=== PATIENT | male | born 1950 | race Caucasian/White ===

== ENCOUNTER 2018-06-15 06:02 | Inpatient (IN) | payer MEDICARE, OTHER ==
[2018-06-07 10:39] LABS: BASOPHILS % (AUTO) 0.2 % (0-1); EOSINOPHILS # (AUTO) 0.1 X10'3 (0-0.9); EOSINOPHILS % (AUTO) 1.4 % (0-6); LYMPHOCYTES # (AUTO) 1.8 X10'3 (1.1-4.8); LYMPHOCYTES % (AUTO) 23.7 % (21-51); MEAN CORPUSCULAR HEMOGLOBIN 31.1 PG (27.0-31.0); MEAN CORPUSCULAR VOLUME 91.6 FL (78-98); MEAN PLATELET VOLUME 8.7 FL (7.4-10.4); MONOCYTES # (AUTO) 0.6 X10'3 (0-0.9); MONOCYTES % (AUTO) 7.8 % (2-12); NEUTROPHILS # (AUTO) 5.1 X10'3 (1.8-7.7); NEUTROPHILS % (AUTO) 66.9 % (42-75); PRE OP HEMATOCRIT 46.4 % (42.0-52.0); PRE OP HEMOGLOBIN 15.8 g/dL (14.0-17.9); PRE OP PLATELET COUNT 216 X10'3 (140-440); RED BLOOD COUNT 5.06 X10'6 (4.70-6.10); RED CELL DISTRIBUTION WIDTH 13.1 % (11.5-14.5)
[2018-06-07 10:56] LABS: ALBUMIN 3.7 G/DL (3.4-5.0); ALBUMIN/GLOBULIN RATIO 1.1 (1.1-1.5); ALKALINE PHOSPHATASE 76 IU/L (46-116); BLOOD UREA NITROGEN 19 MG/DL (7-18); BUN/CREATININE RATIO 19.8 (5.4-32.0); CALCIUM 8.9 MG/DL (8.5-10.1); CHLORIDE 103 MMOL/L (99-107); CREATININE 0.96 MG/DL (0.60-1.10); PRE OP ALT 27 U/L (30-65); PRE OP ANION GAP 8 (8-16); PRE OP AST 22 U/L (10-37); PRE OP BILIRUB, TOTAL 0.7 MG/DL (0.0-1.0); PRE OP GLUCOSE 107 MG/DL (70-104); PRE OP POTASSIUM 4.2 MMOL/L (3.4-5.1); PRE OP SODIUM 137 MMOL/L (135-145); TOTAL PROTEIN 7.2 G/DL (6.4-8.2); eGFR 78 ML/MIN
[2018-06-15] VITALS (7 sets, daily range): BP systolic 113–146; BP diastolic 68–90
[~2018-06-15] VITALS: Ht 182.9 cm; Wt 81.0 kg
[~2018-06-15 06:02] MED LIST: ALBU8.5H8 IH; IRBE150T51 PO; cefazolin/dext.iso 2gm/50ml 50 ML IV ONE; famotidine 20mg tablet PO ONE; ringers solution, lacted 1,000 ML IV SCH; vancomycin inj 1,500 MG in normal saline 300ml IV soln IV ONE
[2018-06-15] MEDS ORDERED: ROPIVAcaine 0.5% (5mg/ml) 30ml vial ONE ×2 (06:55→08:07)
[2018-06-15] MEDS ORDERED: ketorolac trometh. 30mg/ml inj. ONE (06:55)
[2018-06-15] MEDS ORDERED: sevoflurane 250ml liquid IH ONE (08:02)
[2018-06-15] MEDS ORDERED: cloNIDine hcl/PF 100mcg/ml inj ONE ×2 (08:07→08:08)
[2018-06-15] MEDS ORDERED: midazolam 2 mg/2 ml injection ONE (08:11)
[2018-06-15] MEDS ORDERED: fentaNYL/PF 50MCG/1 ML 2ML syringe ONE (08:11)
[2018-06-15] MEDS ORDERED: tranexamic acid inj. 800 MG in normal saline 100ml IV soln 92 ML IV ONE ×4 (08:30)
[2018-06-15] MEDS ORDERED: ringers solution, lacted 1,000 ML IV SCH (09:44)
[2018-06-15] MEDS ORDERED: morphine 4 MG/ML inj SYRINge IV PRN ×2 (09:45)
[2018-06-15] MEDS ORDERED: proCHLORperazine 10 MG/2 ml inj IV PRN (09:45)
[2018-06-15] MEDS ORDERED: ondansetron/PF 4mg/2ml inj IV PRN ×2 (09:45→10:25)
[2018-06-15] MEDS ORDERED: meperidine/PF 25mg/ml syringe IV PRN ×3 (09:45)
[2018-06-15] MEDS ORDERED: potassium cl 20mEq in 1/2 NS 1,000 ML IV SCH (10:25)
[2018-06-15] MEDS ORDERED: bisacodyl 10mg suppository rectal RC PRN (10:25)
[2018-06-15] MEDS ORDERED: magnesium hydroxide 30ml (MOM) UD suspension PO PRN (10:25)
[2018-06-15] MEDS ORDERED: non-formulary drug (Albuterol Sulfate (Proair Hfa) 2 PUFFS) IH PRN (10:25)
[2018-06-15] MEDS ORDERED: oxyCODONE IR 5mg (immed. release) tablet PO PRN ×2 (10:25)
[2018-06-15] MEDS ORDERED: acetaminophen 325mg tablet PO PRN (10:25)
[2018-06-15] MEDS ORDERED: HYDROmorphone 1 mg/ml syringe IV PRN ×2 (10:25)
[2018-06-15] MEDS ORDERED: diphenhydrAMINE 25mg capsule PO PRN ×2 (10:25)
[2018-06-15] MEDS ORDERED: ePHEDrine 50MG/ML INJ. ONE (10:28)
[2018-06-15] MEDS ORDERED: propofol inj 20 ML IV ONE (10:28)
[2018-06-15] MEDS ORDERED: albuterol 2.5 MG/3 ML nebule NEB PRN (11:50)
[2018-06-15] MEDS ORDERED: gabapentin 300mg capsule PO SCH (13:00)
[2018-06-15] MEDS ORDERED: tranexamic acid inj. 810 MG in normal saline 100ml IV soln 100 ML IV ONE (13:30)
[2018-06-15] MEDS ORDERED: acetaminophen 325mg tablet PO SCH (14:00)
[2018-06-15] MEDS ORDERED: ketorolac tromethamine 15mg/ml inj. IV SCH (14:00)
[2018-06-15] MEDS ORDERED: ceFAZolin 1GM/D5W- ADD-VANTAGE 50 ML IV SCH (16:00)
[2018-06-15] MEDS ORDERED: vancomycin/NS 1 GM ADD-VANTAGE 250 ML IV SCH (20:00)
[2018-06-15] MEDS ORDERED: sennosides 8.6mg tablet PO SCH (21:00)
[2018-06-16] MEDS ORDERED: losartan 50mg tablet PO SCH (08:00)
[2018-06-16] MEDS ORDERED: aspirin 325mg tablet PO SCH (08:30)
[2018-06-16] MEDS ORDERED: celeCOXIB 100mg capsule PO SCH (20:00)
[2018-06-17] MEDS ORDERED: acetaminophen 325mg tablet PO PRN (10:25)
== END 2018-06-15 13:45 | disposition home or self-care (01) | DRG 483 ==
LOC: PAS IN 06:02 → EDSTATUS 09:45 → ORTHO 4S 11:35
PROVIDERS: ADMIT Orthopaedic Surgery; ATTEND Orthopaedic Surgery
PROC: 3E0T3BZ Introduction of Anesthetic Agent into Peripheral Nerves and Plexi, Percutaneous Approach (ICD-10-PCS; 2018-06-15)
PROC: 0RRJ0JZ Replacement of Right Shoulder Joint with Synthetic Substitute, Open Approach (ICD-10-PCS; principal; 2018-06-15 08:02)
DX: M19.011 Primary osteoarthritis, right shoulder (principal); M25.511 Pain in right shoulder; J45.909 Unspecified asthma, uncomplicated; I10 Essential (primary) hypertension; Z96.612 Presence of left artificial shoulder joint; Z79.899 Other long term (current) drug therapy; Z79.82 Long term (current) use of aspirin
CPT/HCPCS: 36415; 80053; 85025; 87070; A4565; A7000; C1713; C1776; G0378; J0690; J0735; J1885; J2250; J2704; J2795; J3010; J3370; J7030; J7040; J7120

== ENCOUNTER 2019-08-03 06:48 | Outpatient (CLI) | payer MEDICARE, OTHER ==
[~2019-08-03] VITALS: Ht 182.9 cm; Wt 77.1 kg
[~2019-08-03 06:48] MED LIST changes: -cefazolin/dext.iso 2gm/50ml 50 ML IV ONE; -famotidine 20mg tablet PO ONE; -ringers solution, lacted 1,000 ML IV SCH; -vancomycin inj 1,500 MG in normal saline 300ml IV soln IV ONE
[2019-08-03] MEDS ORDERED: albuterol 2.5 MG/3 ML nebule NEB PRN (07:55)
== END 2019-08-03 23:59 | disposition home or self-care (01) ==
LOC: RT 06:48
PROVIDERS: ATTEND Internal Medicine Pulmonary Disease
DX: J45.991 Cough variant asthma (principal)
CPT/HCPCS: 85018; 94060; 94727; 94729; 94760

== ENCOUNTER 2023-08-04 09:17 | Day surgery (SDC) | payer MEDICARE ==
[~2023-08-04] VITALS: Ht 182.9 cm; Wt 75.3 kg
[~2023-08-04 09:17] MED LIST changes: +ALBU8.5H17 IH; -ALBU8.5H8 IH
[2023-08-04 09:36] VITALS: BP 112/72; PULSE 64; RESP 16; TEMP 98.1; O2SAT 97
[2023-08-04] MEDS ORDERED: DONE-55 PO (09:48)
[2023-08-04] MEDS ORDERED: AMPH10TA23 PO (09:48)
[2023-08-04] MEDS ORDERED: LEVO100T9 PO (09:48)
[2023-08-04] MEDS ORDERED: FLO0.4C PO (09:48)
[2023-08-04] MEDS ORDERED: APIX5TAB3 PO (09:48)
[2023-08-04] MEDS ORDERED: VALS320T17 PO (09:48)
[2023-08-04 10:13] VITALS: BP 120/63; PULSE 59; RESP 16; O2SAT 99
[2023-08-04 10:30] VITALS: BP 120/67; PULSE 54; RESP 16; O2SAT 97; O2SAT 99
[2023-08-04 10:45] VITALS: BP 134/60; PULSE 54; RESP 16; O2SAT 100
[2023-08-04 11:25] VITALS: BP 128/73; PULSE 54; RESP 16; O2SAT 100
[2023-08-04 11:58] VITALS: BP 127/73; PULSE 57; RESP 16; O2SAT 100
[2023-08-06 14:00] LABS: LYME IGG P18 AB Absent (.); LYME IGG P23 AB Absent (.); LYME IGG P28 AB Absent (.); LYME IGG P30 AB Absent (.); LYME IGG P39 AB Absent (.); LYME IGG P41 AB Absent (.); LYME IGG P45 AB Absent (.); LYME IGG P58 AB Absent (.); LYME IGG P66 AB Absent (.); LYME IGG P93 AB Absent (.); LYME IGG WB INTERP Negative (.); LYME IGM P23 AB Absent (.); LYME IGM P39 AB Absent (.); LYME IGM P41 AB Absent (.); LYME IGM WB INTERP Negative (.)
[2023-08-06 19:26] LABS: ANGIOTENSIN CONVERT ENZ, CSF <1.5 U/L (0.0-3.1); CRYPTOCOCCUS AG TITER, CSF Not Indicated (.); CRYPTOCOCCUS ANTIGEN, CSF Negative (Negative)
== END 2023-08-04 12:15 | disposition home or self-care (01) ==
LOC: SSTAY O 09:17
PROVIDERS: ATTEND Psychiatry & Neurology Neurology
DX: R27.0 Ataxia, unspecified (principal); G47.30 Sleep apnea, unspecified; I10 Essential (primary) hypertension; F98.8 Other specified behavioral and emotional disorders with onset usually occurring in childhood and adolescence; Z85.46 Personal history of malignant neoplasm of prostate; Z86.73 Personal history of transient ischemic attack (TIA), and cerebral infarction without residual deficits; Z85.820 Personal history of malignant melanoma of skin; Z72.89 Other problems related to lifestyle; Z79.899 Other long term (current) drug therapy
CPT/HCPCS: 36415; 62328; 77002; 82164; 86617; 87899

== ENCOUNTER 2024-12-06 21:13 | Emergency (ER) | payer MEDICARE ==
[~2024-12-06] VITALS: Ht 182.9 cm; Wt 66.0 kg
[~2024-12-06 21:13] MED LIST changes: +AMPH10TA23 PO; +APIX5TAB3 PO; +DONE-55 PO; +FLO0.4C PO; -IRBE150T51 PO; +LEVO100T9 PO; +VALS320T17 PO
[2024-12-06 21:25] VITALS: TEMP 98.1
[2024-12-06 21:35] VITALS: BP 117/73; PULSE 60; RESP 16; O2SAT 98
== END 2024-12-06 22:24 | disposition left against medical advice (07) ==
LOC: ER 21:14
DX: R41.0 Disorientation, unspecified (principal); Z53.21 Procedure and treatment not carried out due to patient leaving prior to being seen by health care provider